=== PATIENT | female | born 1960 | race Caucasian/White ===

== ENCOUNTER 2018-04-16 14:29 | Emergency (ER) | payer OTHER ==
[2018-04-16 15:13] VITALS: BP 134/79; PULSE 58; TEMP 97.9; BMI 29.2
--- NOTE | 2018-04-16 15:28 | PDOC ---
History of Present Illness - General Chief Complaint: Injury Stated Complaint: FALL/INJURY Time Seen by Provider: 04/16/18 15:16 History Source: Patient Exam Limitations: No Limitations - History of Present Illness Occurred: reports: just prior to arrival Pain Location: reports: head, upper extremity (left upper arm) Modifying Factors: improves with: None Loss of Consciousness: no loss of consciousness Associated Symptoms (Fall): denies symptoms Past History - Travel Traveled outside of the country in the last 30 days: No Close contact w/someone who was outside of country & ill: No - Past Medical History Allergies/Adverse Reactions: Allergies Allergy/AdvReac Type Severity Reaction Status Date / Time No Known Allergies Allergy Verified 04/16/18 15:07 Home Medications: Ambulatory Orders Naproxen Sodium [Aleve] 220 mg PO BID 04/16/18 Cancer: No CVA: No COPD: No Diabetes: No - Surgical History Appendectomy: No Gastric Stapling: No Lung Surgery: No - Immunization History Immunization Up to Date: No - Suicide/Smoking/Psychosocial Hx Smoking History: Never smoked Have you smoked in the past 12 months: No Information on smoking cessation initiated: No Hx Alcohol Use: No Drug/Substance Use Hx: No Review of Systems - Review of Systems Is the patient limited Estonian proficient: No Constitutional: No: Chills, Fever Cardiac (ROS): No: Chest Pain Musculoskeletal: Yes: Muscle Pain, Other (L upper arm pain). No: Back Pain Neurological: Yes: Headache. No: Numbness, Paresthesia, Seizure, Tingling, Tremors, Weakness, Unsteady Gait, Ataxia, Dizziness *Physical Exam - Vital Signs Last Vital Signs Temp Pulse Resp BP Pulse Ox 97.9 F 58 L 16 134/79 98 04/16/18 15:09 04/16/18 15:09 04/16/18 15:09 04/16/18 15:09 04/16/18 15:09 - Physical Exam General Appearance: Yes: Nourished Respiratory/Chest: positive: Lungs Clear, Normal Breath Sounds Cardiovascular: positive: Regular Rhythm, Regular Rate, S1, S2 Extremity: positive: Other (L upper arm: + ecchymosis in tricep region, ++ tenderness to touch) Neurologic: positive: process treater II-XII NML intact, Fully Oriented (Head: AT, ++ tenderness on left temporal region, no raccoon eyes) Moderate Sedation - Procedure Monitoring Vital Signs: Procedure Monitoring Vital Signs Temperature 97.9 F 04/16/18 15:09 Pulse Rate 58 L 04/16/18 15:09 Respiratory Rate 16 04/16/18 15:09 Blood Pressure 134/79 04/16/18 15:09 O2 Sat by Pulse Oximetry (%) 98 04/16/18 15:09 ED Treatment Course - RADIOLOGY Radiology Studies Ordered: Category Date Time Status HEAD CT WITHOUT CONTRAST [CT] Stat CT Scan 04/16/18 15:22 Ordered HUMERUS-LEFT [RAD] Stat Radiology 04/16/18 15:22 Ordered Progress Note - Progress Note Progress Note: 57 years old female with no prior medical history patient presents here with left-sided scalp pain after a mechanical fall 2 days ago. Patient reports she braced for with her left upper arm and she hit her head against a doorknob. She denies any LOC dizziness or headache at the time. Patient does not take any anticoagulation. She was in usual state of health until this morning when she felt more pressure on the left side of her head. She still denies any dizziness. exam with ++ scalp tenderness on left temporal region CT to r/o bleed xray of humerus ordered dispo pending head CT neg prelim humeral fx neg as well cold compresses and tylenol recommended PCP f/u Medical Decision Making - Medical Decision Making 04/16/18 18:35 57y/o F with Left upper arm discomfort and L temporal swelling after a mechanical fall 2 days ago. Pt denies CP, LOC, dizziness or JUARES at this time. She still feel throbbing on the left side of head, she denies any change in mental status or visual disturbance, requesting a head CT. head CT--neg non focal neuro exam humerus with ecchymosis neg xray cold compresses to affected side of head Tylenol prn pain f/u with PCP *DC/Admit/Observation/Transfer Diagnosis at time of Disposition: Arm pain, left Contusion of head Qualifiers: Encounter type: initial encounter Contusion of head detail: scalp Qualified Code(s): S00.03XA - Contusion of scalp, initial encounter - Discharge Dispostion Disposition: HOME Condition at time of disposition: Stable Decision to Admit order: No - Referrals Referrals: Andres Monteiro MD [Primary Care Provider] - - Patient Instructions Printed Discharge Instructions: DI for Contusion, DI for Arm Pain Additional Instructions: Your head CT scan today was negative for any head bleed or fracture The preliminary read of your arm xray was negative as well cold compresses to scalp Please follow up with your primary doctor You may return to the Emergency Department if worsening symptoms occur. - Post Discharge Activity
== END 2018-04-16 16:56 | disposition home or self-care (01) ==
LOC: JERFT 14:29
DX: S00.03XA Contusion of scalp, initial encounter (principal); W01.198A Fall on same level from slipping, tripping and stumbling with subsequent striking against other object, initial encounter; Y93.89 Activity, other specified; Y92.89 Other specified places as the place of occurrence of the external cause; Y99.8 Other external cause status
CPT/HCPCS: 70450-TC; 73060-TC-LT-FY; 99281-25

== ENCOUNTER 2022-01-19 14:36 | Emergency (ER) | payer OTHER ==
[2022-01-19 15:12] VITALS: BP 115/74; PULSE 76; RESP 18; TEMP 98.1; BMI 29.2
[2022-01-19 15:58] LABS: EPI CELLS 4 /uL (0-25.1); HYALINE CASTS 1 /uL (0-3.1); PH,URINE 5.5 (5.0-8.0); URINE APPEARANCE CLOUDY; URINE BACTERIA 15 /uL (0-1359); URINE BILIRUBIN NEGATIVE (NEGATIVE); URINE COLOR YELLOW; URINE GLUCOSE (UA) NEGATIVE (NEGATIVE); URINE KETONE NEGATIVE (NEGATIVE); URINE LEUK ESTERASE 3+ (NEGATIVE); URINE NITRITE NEGATIVE (NEGATIVE); URINE PROTEIN TRACE (NEGATIVE); URINE RBC 106 /uL (0-23.9); URINE UROBILINOGEN 0.2 mg/dL (0.2-1.0); URINE WBC 1304 /uL (0-25.8)
== END 2022-01-19 16:04 | disposition home or self-care (01) ==
LOC: JERFT 14:36 → JER 14:36 → JERFT 16:04
DX: N30.01 Acute cystitis with hematuria (principal)
CPT/HCPCS: 81003; 87086; 99283-25